=== PATIENT | female | born 1945 | race Caucasian/White ===

== ENCOUNTER → 2017-12-26 | Outpatient (CLI) | payer MEDICARE | END | disposition home or self-care (01) | LOC: ECHO 11:13 | DX: I10 Essential (primary) hypertension (principal); I36.1 Nonrheumatic tricuspid (valve) insufficiency; I51.7 Cardiomegaly | CPT/HCPCS: 93306 ==

== ENCOUNTER → 2018-03-16 | Outpatient (CLI) | payer MEDICARE | END | disposition home or self-care (01) | LOC: MRI 09:16 | DX: S43.431A Superior glenoid labrum lesion of right shoulder, initial encounter (principal); M62.50 Muscle wasting and atrophy, not elsewhere classified, unspecified site; M75.121 Complete rotator cuff tear or rupture of right shoulder, not specified as traumatic; M19.011 Primary osteoarthritis, right shoulder; M25.411 Effusion, right shoulder; M25.711 Osteophyte, right shoulder; X58.XXXA Exposure to other specified factors, initial encounter; Y93.89 Activity, other specified; Y92.89 Other specified places as the place of occurrence of the external cause; Y99.8 Other external cause status | CPT/HCPCS: 73221 ==

== ENCOUNTER → 2019-04-25 | Outpatient (CLI) | payer MEDICARE ==
[2014-12-26 15:08] VITALS: BP 134/74
[~2019-04-25] MED LIST: ARIP2TAB3 PO; ARIP5TAB13 PO; ASCO500C PO; BUPR100T11 PO; BUPR150T11 PO; CHOL500016 PO; CLON0.5T11 PO; DESV50TA PO; FLUT10SP NS; GUAI-108 PO; GUAI100G2 PO; HYDR-3135 PO; KRIL1CAP10 PO; LEVO50TA5 PO; LURA20TA PO; MONT10TA49 PO; OLME1TAB27 PO; OMEP20CA10 PO; PANT40TA77 PO; WARF1TAB74 PO; ZOLP10TA4 PO
--- NOTE | 2019-04-25 12:52 | RAD ---
MRI Lumbar Spine without contrast History: Neurogenic claudication Technique: Multiplanar, multi sequential noncontrast MR imaging was performed of the lumbar spine. Comparison: None Findings: Lumbar vertebral body stature is overall maintained. There is minimal grade 1 anterior spondylolisthesis at L2-3 and to lesser degree at L3-4, negligible anterior spondylolisthesis L5-S1. There is advanced degenerative disc disease at L4-5, to lesser degree L3-4, minimally at other levels of the lumbar spine. There are large hemangiomas of L1 and T11 vertebral bodies. There is a focus of relative decreased T1 and T2 signal of the L2 vertebral body associated subtle increased STIR signal, estimated about 1.2 cm AP by 1.1 cm cc by 0.8 cm transverse. Not included on the axial images, facet degenerative change contributes to at least mild narrowing of the left T10-11 neural foramen. L1-L2: There is negligible disc osteophyte complex. There is minimal facet degenerative change. Neural foramina and spinal canal are overall adequate. L2-L3: There is mild to moderate facet degenerative change and buckling of the ligamentum flavum. There is negligible disc osteophyte complex. There is mild narrowing of the far lateral recesses greater on the left. There is minimal inferior narrowing of the neural foramina greater on the left. L3-L4: There is mild to moderate right and mild left facet degenerative change. There is minimal buckling of the ligamentum flavum. There is negligible disc osteophyte complex. Spinal canal is adequate. There is mild right greater than left neural foramina compromise. L4-L5: There is negligible disc osteophyte complex. There is mild facet degenerative change greater on the right. There is hgfy-lh-vyiekjsc narrowing of the far left lateral recess at location of descending left L5 nerve root, narrowing primarily from posteriorly by the facet. There is very mild narrowing of the far right lateral recess. There is mild neural foramina compromise bilaterally. Shallow protrusion is near the undersurface of the proximal extraforaminal left L4 nerve root without significant displacement. L5-S1: There is moderate facet hypertrophic change bilaterally, some fluid in the facet articulations bilaterally. There is mild buckling of the ligamentum flavum. There is negligible disc osteophyte complex and bulge, spinal canal overall adequate. There is mild narrowing of left neural foramen, disc osteophyte complex near undersurface exiting left L5 nerve root in the distal neural foramen. There is fairly severe narrowing of the right neural foramen, contact exiting right L5 nerve root from posteriorly by facet as well as inferiorly by disc osteophyte complex. Impression: 1. There is advanced degenerative disc disease at L4-5 and to lesser degree L3-4. There is mild abnormal alignment as stated, multilevel facet degenerative change. There is neural foramina compromise as stated greatest on the right L5-S1. There is lateral recess stenosis as stated, [id number] left lateral recess stenosis at L4-5 at location of the descending left L5 nerve root, also mild narrowing of the far lateral recesses greater on the left at L2-3. 2. There is subtle focus of nonspecific marrow signal abnormality of the L2 vertebral body, characteristics suggestive of slightly edematous sclerotic lesion. However it is possible this could be an atypical hemangioma especially in the setting of other large typical appearing hemangiomas. More aggressive marrow replacing lesion such as from metastatic disease would be difficult to exclude based on signal features. Correlation with any history of malignancy is advised. Bone scan evaluation could be beneficial to assess for abnormal radiotracer activity and to assess for other lesions. Alternatively follow-up could be of performed such as in 3-4 months to assess size stability. Electronically signed by: Carlos Bernard MD (04/25/2019 12:49 PM) [id number]
== END | disposition home or self-care (01) ==
LOC: MRI 08:29
PROVIDERS: ATTEND Family Medicine
DX: M43.17 Spondylolisthesis, lumbosacral region (principal); M51.36 Other intervertebral disc degeneration, lumbar region; M48.062 Spinal stenosis, lumbar region with neurogenic claudication; D18.09 Hemangioma of other sites; M25.78 Osteophyte, vertebrae; M51.26 Other intervertebral disc displacement, lumbar region
CPT/HCPCS: 72148

== ENCOUNTER → 2019-05-04 | Outpatient (CLI) | payer MEDICARE ==
[2014-12-26 15:08] VITALS: BP 134/74
--- NOTE | 2019-05-04 14:27 | RAD ---
Whole body bone scan Clinical indications: Low back pain. Breast cancer diagnosed in 1996. Abnormal MRI. COMPARISON: No previous bone scan available. MRI of the lumbar spine dated April 25, 2019. At technique: After IV infusion of 25 mCi of technetium 99m MDP, delayed anterior and posterior planar images of the whole body were performed. FINDINGS: Bilateral renal function is evident. There is diffuse uptake involving the thoracic and lumbar spine. There is uptake involving both knees around photopenic areas consistent bilateral knee arthroplasty postoperative change. Degenerative activity of both feet and ankles and both wrists and both shoulders is seen. There is diffuse activity involving the sternum. This could be secondary to superimposed activity from the thoracic spine. There is activity seen involving the maxillary and ethmoid sinuses bilaterally. IMPRESSION: Diffuse uptake involving the thoracic and lumbar spine. This most likely represents degenerative activity. The MRI images of the lumbar spine MRI study did not demonstrate any significant metastatic disease. The subtle focus of the L2 vertebral body mentioned previously most likely is related to more prominent red marrow. However, given the diffuse uptake of the thoracic and lumbar spine, recommend that the patient return for an MRI study of the thoracic spine with and without contrast and limited MRI lumbar spine study with contrast. The contrast sagittal T1 images should be performed with fat saturation. Bilateral ethmoid and maxillary sinusitis. Electronically signed by: Elpidio Paulino MD (05/04/2019 2:24 PM) [place] [id number]
== END | disposition home or self-care (01) ==
LOC: NM 08:30
PROVIDERS: ATTEND Family Medicine
DX: J32.0 Chronic maxillary sinusitis (principal); J32.2 Chronic ethmoidal sinusitis
CPT/HCPCS: 78306; A9503

== ENCOUNTER → 2019-05-29 | Outpatient (CLI) | payer MEDICARE ==
[2014-12-26 15:08] VITALS: BP 134/74
[~2019-05-29] MED LIST changes: +ALBU2.5V8 INH; +AMLO5TAB10 PO; +FLUT16SP NS; +LACT1CAP8 PO; +VALS1TAB14 PO; +tylenol arthritis
--- NOTE | 2019-05-29 16:28 | PAIN ---
DATE OF SERVICE: 05/29/2019 INITIAL CONSULTATION FOR PAIN CLINIC CHIEF COMPLAINT: Low back and bilateral lower extremity pain, right greater than left. HISTORY OF PRESENT ILLNESS: This is a 73-year-old female who presents with history of pain for many years, worse over the past 6 months or so, increasing pain of low back and right lower extremity, not the result of any specific injury or action that she is aware of, but worse with walking, standing, changing positions and pain across the low back radiating to posterior gluteus, posterolateral thigh, lateral anterior thigh, anterior medial thigh, medial lower leg, worse on the right than the left. The patient reports it is becoming more constant, radiating, cramping and aching, worse with walking, standing, changing positions, better with sitting or lying down, does awaken her from sleep about once or twice at night. The patient reports it does not affect her bowel or bladder control, but does affect her ability to walk. She is not using any canes or walkers to ambulate. The patient reports she had previous physical therapy, also chiropractic treatments, exercises are ongoing as well as chiropractic treatment is ongoing and this helps the pain to a moderate extent, but only about 40% to 50%. The patient also takes extra strength Tylenol 2 tablets in the morning and 2 tablets in the evening and reports this helps by about 50% as well. The patient reports no loss of motor function, but significant fatigability to lower extremities with walking and standing. The patient reports disability rating from 0-10 with 10 being the worst, is a 7 with family home responsibilities, recreation and occupation, 6 with social activity, 5 with self-care and 3 with life support activities. The patient did have MRI scan of the lumbar spine showing at L4-L5 and L5-S1 significant degenerative changes with neural foraminal compromise on the right at L5-S1 and on the bilateral aspect at L4-L5 with contact of the descending extraforaminal left L4 nerve root as well as descending left L5 nerve root at the L4-L5 level with mild narrowing of the far right lateral recess as well. PAST MEDICAL HISTORY: Significant for hypertension, breast cancer, radiation, asthma, chronic cough, sleep apnea, arthritis, gastroesophageal reflux, shoulder arthritis. PREVIOUS SURGERY: Include cataract extraction, total abdominal hysterectomy, bilateral knee replacements and breast lumpectomy. CURRENT MEDICATIONS: Include Singulair, Wellbutrin, Synthroid, Pristiq, valsartan, amlodipine, pantoprazole, zolpidem, multivitamins, Mucinex, Tylenol, ProAir inhaler, and fluticasone. ALLERGIES: THE PATIENT IS ALLERGIC TO PENICILLIN, SULFA, CODEINE, KEFLEX, BACTRIM, AMPICILLIN, DOXYCYCLINE, ERYTHROMYCIN, LEVAQUIN, AND CLINDAMYCIN. FAMILY HISTORY: Significant for no major medical problems or conditions that she is aware of, but the patient reports her sister does have a laryngeal cancer. SOCIAL HISTORY: The patient does not drink alcohol, does not smoke, does not use any illegal, illicit or recreational drugs. She is , lives with her spouse, lives locally in [place], [place] and is currently retired. REVIEW OF SYSTEMS: The patient's review of systems is positive for those items mentioned in history of present illness. All systems reviewed and otherwise negative. It is complete, full and well documented on the patient's chart. PHYSICAL EXAMINATION: VITAL SIGNS: The patient's blood pressure is 138/82, pulse 81, respirations 18, temperature is 98.1 degrees Fahrenheit, height is 5 feet 5 inches, weight is 200 pounds. GENERAL: The patient is awake, alert, oriented, appropriate, very pleasant demeanor. HEENT: Head shows normocephalic, atraumatic. Extraocular movements are intact and symmetrical. Oral cavity, mucous membranes are moist and pink. Dentition is intact. NECK: Shows anterior throat supple without palpable lymphadenopathy noted. Swallow reflex symmetrical. CHEST: Shows normal on inspection. Breath sounds clear to auscultation bilaterally. HEART: Shows S1, S2 clear. No murmurs auscultated. ABDOMEN: Soft, nontender, and nondistended. No palpable organomegaly is noted. No rebound or guarding demonstrated. BACK: Shows spine grossly in the midline. Slight exaggeration of thoracic kyphosis and minor flattening of lumbar lordotic curvature. Lumbar paraspinous muscle shows symmetrical on inspection, on palpation shows some moderate tenderness diffusely bilaterally in the lumbar distribution, but only diffusely without radiation throughout the upper, middle and lower distribution of paraspinous muscles. No tenderness over the spinous processes or sacrum or sacroiliac regions. The patient shows good rotational motion of lumbar spine, both laterally greater than 10 degrees right and left as well as extension greater than 10 degrees, forward flexion 45 degrees without significant pain reported. EXTREMITIES: Lower extremities show deep tendon reflexes at 1+ in the patellar and tendo calcaneus tendons are equal. Motor exam is strong with 5/5 dorsiflexion, extension, quadriceps and hamstring flexion symmetrical. Straight leg raise noted to be positive on the right about 45 degrees, decreased with knee flexion, left side is negative. Gaenslen's and Ke's maneuvers are negative bilaterally. Peripheral pulses are 1+ posterior tibia. Lower extremities are warm and dry to touch, equal in color and appearance. The patient is able to stand, stand on her toes without significant difficulty, but walks with a slight favoring gait, favors right lower extremity with a slight limp, not using any assistive devices to ambulate. SKIN: Shows warm and dry, good turgor. No edema. No sores or bruising. IMPRESSION: 1. This is a 73-year-old female with many-year history of low back, right lower, left lower extremity pain in a radicular fashion, worse over the past 6 months or so, status post floor care specialist, previous therapies and doing exercise currently with still a significant pain and with [id number] extra strength Tylenol twice daily. 2. MRI scan of lumbar spine as noted. 3. Hypertension. 4. Arthritis. 5. History of breast cancer. PLAN: Options were discussed with the patient including conservative medical management, physical therapies, interventional techniques. She would like to pursue interventional techniques. We discussed a lumbar epidural steroid injection using description as well as anatomical models to describe the procedure. The patient will wait for preauthorization with her insurance provider, which she does have a clinical radiculopathy in the L4-L5 dermatomal distribution, worse on the right than the left, but present bilaterally. We will plan on a translaminar L4-L5 level lumbar epidural steroid injection on her return once her preauthorization is made. The patient will continue with exercising, strengthening and stretching as normal as well as walking as tolerated daily and the patient will follow up as scheduled. RENEE ABEL MD DR: LEANNA/yari JOB#: [id number] / [id number]
== END | disposition home or self-care (01) ==
LOC: PNCL 09:08
PROVIDERS: ATTEND Anesthesiology
DX: M54.5 Low back pain (principal); M79.605 Pain in left leg; M79.604 Pain in right leg; I10 Essential (primary) hypertension; J45.909 Unspecified asthma, uncomplicated; G47.30 Sleep apnea, unspecified; K21.9 Gastro-esophageal reflux disease without esophagitis; M19.019 Primary osteoarthritis, unspecified shoulder; Z98.49 Cataract extraction status, unspecified eye; Z90.710 Acquired absence of both cervix and uterus; Z96.653 Presence of artificial knee joint, bilateral; Z79.84 Long term (current) use of oral hypoglycemic drugs; Z79.2 Long term (current) use of antibiotics; Z79.899 Other long term (current) drug therapy; Z88.2 Allergy status to sulfonamides; Z88.5 Allergy status to narcotic agent; Z88.1 Allergy status to other antibiotic agents; Z88.8 Allergy status to other drugs, medicaments and biological substances; Z85.3 Personal history of malignant neoplasm of breast; Z92.3 Personal history of irradiation
CPT/HCPCS: G0463

== ENCOUNTER → 2019-06-20 | Outpatient (CLI) | payer MEDICARE ==
[2014-12-26 15:08] VITALS: BP 134/74
[~2019-06-20] MED LIST changes: +CLON-77 PO; -CLON0.5T11 PO; +IOHEXOL 180 MG/ML 10 ML VIAL. ONE; +methylPREDNISolone ACETATE 40 MG/ML VIAL. ONE; +methylPREDNISolone ACETATE 80 MG/ML VIAL. ONE
--- NOTE | 2019-06-21 02:56 | PN ---
DATE: 06/20/2019 PROGRESS NOTE FOR PAIN CLINIC DIAGNOSES: Lumbar radiculopathy with lumbar degenerative disk disease and lumbar spinal stenosis. HISTORY OF PRESENT ILLNESS: The patient is a 74-year-old female who returns for followup status post initial evaluation and preauthorization for lumbar epidural steroid injection. The patient has obtained that now and would like to proceed, still pain in the low back, bilateral lower extremities, right greater than left. The patient reports her pain in the last week has been 8 on a scale of 10 at its worst, 7 on average, 6 at its least, and is a 6 today. The patient reports it is aching, sharp, radiating, constant, becoming severe at times, worse with walking and standing, better with sitting or lying down, does not awaken her from sleep. The patient reports no new motor or sensory deficits. No new bowel or bladder incontinence or other complaints. PHYSICAL EXAMINATION: VITAL SIGNS: The patient's blood pressure is 147/79, pulse 76, respirations 16, temperature is 97.7 degrees Fahrenheit, and weight is 201 pounds. GENERAL: The patient is awake, alert, oriented, appropriate, and very pleasant demeanor. HEENT: Shows normocephalic and atraumatic. Extraocular movements are intact and symmetrical. Oral cavity: Mucous membranes are moist and pink. Dentition is intact. NECK: Shows anterior throat supple without palpable lymphadenopathy noted. Swallow reflex symmetrical. CHEST: Shows normal on inspection. Breath sounds are clear to auscultation bilaterally. HEART: Shows S1, S2 clear. No murmurs auscultated. ABDOMEN: Soft, nontender, and nondistended. No palpable organomegaly is noted. No rebound or guarding demonstrated. BACK: Shows spine grossly in the midline. Normal appearing thoracic kyphosis and lumbar lordotic curvature. Lumbar paraspinous muscle shows symmetrical on inspection, on palpation shows some moderate tenderness diffusely in the low lumbar distribution, but only diffusely without radiation. The patient has good rotational motion of lumbar spine, both laterally as well as extension and flexion without significant difficulty. EXTREMITIES: Lower extremities show deep tendon reflexes 1+ in the patellar and tendo calcaneus tendons. Motor exam is strong with 5/5 dorsiflexion, extension, quadriceps and hamstring flexion and symmetrical. Peripheral pulses are 1+. No peripheral edema is noted bilaterally. Options were discussed with the patient. The patient's old chart was reviewed as her current medication regimen updated and current review of systems updated today as well. We will proceed with a lumbar epidural steroid injection today with fluoroscopic guidance. Risks were again discussed including, but not limited to bleeding, infection, possibility of epidural hematoma, subsequent neurological compromise, dural puncture, headaches, spinal cord and/or nerve damage, side effects of steroid medication and poor results regarding pain control. The patient understands and wished to proceed. The patient will return to clinic in approximately 2 weeks for followup. She was counseled on return appointment, activity level, and side effects to be aware of. DIAGNOSIS: Lumbar radiculopathy with lumbar degenerative disk disease and lumbar spinal stenosis. PROCEDURE: Lumbar epidural steroid injection, translaminar approach at L4-L5 level using C-arm fluoroscopic guidance under sterile prep and drape using local anesthetic. MEDICATION INJECTED: The patient received a total of 120 mg Depo-Medrol plus 10 mL of preservative-free normal saline and 2 mL of contrast. CONDITION AT DISCHARGE: Stable. The patient tolerated the procedure well, had no complications. RENEE ABEL MD DR: LEANNA/yari JOB#: [id number] / [id number]
== END ==
LOC: PNCL 10:34
PROVIDERS: ATTEND Anesthesiology
DX: M51.16 Intervertebral disc disorders with radiculopathy, lumbar region (principal); M48.061 Spinal stenosis, lumbar region without neurogenic claudication
CPT/HCPCS: 62323; J1030; J1040; Q9965

== ENCOUNTER → 2019-10-04 | Outpatient (CLI) | payer MEDICARE ==
[2014-12-26 15:08] VITALS: BP 134/74
[~2019-10-04] MED LIST changes: -IOHEXOL 180 MG/ML 10 ML VIAL. ONE; +OMEP-229 PO; -OMEP20CA10 PO; -methylPREDNISolone ACETATE 40 MG/ML VIAL. ONE; -methylPREDNISolone ACETATE 80 MG/ML VIAL. ONE
--- NOTE | 2019-10-04 22:35 | PAIN ---
DATE OF SERVICE: 10/04/2019 DIAGNOSES: Lumbar radiculopathy with lumbar degenerative disk disease, lumbar spinal stenosis. HISTORY OF PRESENT ILLNESS: The patient is a 74-year-old female who returns for followup status post lumbar epidural steroid injection x 1, last seen 06/20/2019, patient did very well with about 80% improvement in the low back and right lower extremity pain. The patient reports that she was walking greater distances, doing work activities, household activities, travelling with greater ease and comfort. Unfortunately, her sister fell ill in [facility] and she had 2 car trips there within a week's time with excessive time [address] sitting in the car, which has exacerbated the pain in the low back and right leg, now radiating to posterior gluteus, lateral thigh, lateral anterior thigh, medial thigh, medial lower leg and into the posterior calf. The patient reports it is an 8 on a scale of 10 at its worst over the past week, 7 on average, 7 at its least and is a 7 today, aching, sharp, stabbing, becoming more constant, radiating into the low back and right lower extremity as it was previously following L4-L5 dermatomal distribution on the right only. No symptoms on the left side, but across the low back bilaterally. The patient reports it is stabbing and sharp in the back, becoming more constant. The patient reports no new motor or sensory deficits. No new bowel or bladder incontinence. No other complaints. PHYSICAL EXAMINATION: VITAL SIGNS: The patient's blood pressure is 145/85, pulse 80, respirations 18, temperature 97.5 degrees Fahrenheit, height is 5 feet 5 inches, weighs 197 pounds. GENERAL: The patient is awake, alert, oriented, appropriate, very pleasant demeanor. HEENT: Shows normocephalic, atraumatic. Extraocular movements are intact and symmetrical. Oral cavity shows mucous membranes moist and pink. Dentition is intact. NECK: Shows anterior throat supple without palpable lymphadenopathy noted. Swallow reflex symmetrical. CHEST: Shows normal on inspection. Breath sounds clear bilaterally. HEART: Shows S1, S2 clear. Obese, soft, nontender, nondistended. No palpable organomegaly is noted. No rebound or guarding demonstrated. BACK: Shows spine grossly in the midline. Normal appearing thoracic kyphosis, minor flattening of lumbar lordotic curvature. Lumbar paraspinous muscle shows symmetrical on inspection with some mild palpation throughout the upper, middle and lower distribution of paraspinous musculature, only mildly though without radiation and without trigger points. The patient has good rotational motion of lumbar spine, both laterally as well as extension and flexion without difficulty. EXTREMITIES: Lower extremities show deep tendon reflexes 1+ patellar and tendo calcaneus tendons. Motor exam is approximately 5 on a scale of 5 dorsiflexion, extension, quadriceps and hamstring flexion is symmetrical. Straight leg raising noted to be mildly positive on the right only at about 35-40 degrees, decreased with knee flexion, left side is negative. Gaenslen's and Ke's maneuvers are negative bilaterally. The patient is able to stand, stand on her toes without significant difficulty or loss of balance. Options were discussed with the patient. The patient's old chart was reviewed as her current medication regimen updated. Current review of systems updated today as well. We will preauthorize the patient for a second in the series of lumbar epidural steroid injection. She did very well after the first injection for several weeks following the injection and only pain returning over the past 3 weeks now. The injection was in June after excessive time spent on a car trip with a recurrent right sided L4-L5 dermatomal distribution radiculopathy. We will plan on lumbar epidural steroid injection at L4-L5 level, translaminar approach for the L4-L5 radiculopathy on the right side. The patient will continue doing stretching and strengthening exercises on her own, maintain walking daily as she has been doing stretching and strengthening exercises as tolerated and return for the lumbar epidural steroid injection. RENEE ABEL MD DR: LEANNA/yari JOB#: [id number] / [id number]
== END | disposition home or self-care (01) ==
LOC: PNCL 13:49
PROVIDERS: ATTEND Anesthesiology
DX: M51.16 Intervertebral disc disorders with radiculopathy, lumbar region (principal); M48.061 Spinal stenosis, lumbar region without neurogenic claudication
CPT/HCPCS: G0463

== ENCOUNTER → 2019-10-16 | Outpatient (CLI) | payer MEDICARE ==
[2014-12-26 15:08] VITALS: BP 134/74
[~2019-10-16] MED LIST changes: +IOHEXOL 180 MG/ML 10 ML VIAL. ONE; +methylPREDNISolone ACETATE 40 MG/ML VIAL. ONE; +methylPREDNISolone ACETATE 80 MG/ML VIAL. ONE
--- NOTE | 2019-10-16 13:17 | PAIN ---
DATE OF SERVICE: 10/16/2019 PROGRESS NOTE FOR PAIN CLINIC DIAGNOSES: Lumbar radiculopathy with lumbar degenerative disk disease, lumbar spinal stenosis. HISTORY OF PRESENT ILLNESS: The patient is a 74-year-old female who returns for followup status post lumbar epidural steroid injection x 1. The patient reports she did very well with about 80% improvement, the pain is returning now in the low back and into the right lower extremity as it was previously, posterior gluteus, posterolateral thigh, lateral anterior thigh, medial thigh, medial lower leg as well. The patient reports no new motor or sensory deficits, no new bowel or bladder incontinence, still significant pain with the walking, standing, changing positions, better with sitting or lying down, generally does not awaken her from sleep at night, however. The patient reports no new motor or sensory deficits, rates her pain as 8 on a scale of 10 at its worst, 8 on average, 8 at its least and is an 8 today. The patient reports it is cramping, stabbing, aching type, and shooting in the right lower extremity, somewhat in the left, but only very occasionally and across the low back. The patient reports it is on and off in intensity. No new motor or sensory deficits, no new bowel or bladder incontinence or other complaints. PHYSICAL EXAMINATION: VITAL SIGNS: The patient's blood pressure 149/86, pulse 77, respirations 18, temperature 97.5 degrees Fahrenheit, height is 5 feet 5 inches, weight is 194 pounds. GENERAL: The patient is awake, alert, oriented, appropriate, very pleasant demeanor. HEENT: Shows normocephalic, atraumatic. Extraocular movements are intact and symmetrical. Oral cavity shows mucous membranes moist and pink. Dentition is intact. NECK: Shows anterior throat supple without palpable lymphadenopathy noted. Swallow reflex symmetrical. CHEST: Shows normal on inspection. Breath sounds are clear bilaterally. HEART: Shows S1, S2 clear. No murmurs auscultated. ABDOMEN: Soft, nontender, nondistended. BACK: Shows spine grossly in the midline. Normal-appearing thoracic kyphosis, some minor increase in thoracic kyphosis actually and some minor flattening of lumbar lordotic curvature. Lumbar paraspinous muscle shows symmetrical on inspection, on palpation shows some moderate tenderness diffusely bilaterally, but only diffusely without significant radiation. The patient shows good rotational motion of lumbar spine, both laterally as well as extension and flexion. EXTREMITIES: Lower extremities show deep tendon reflexes 1+ in the patellar and tendo calcaneus tendons are equal. Motor exam is 5 on a scale of 5 with dorsiflexion, extension, quadriceps and hamstring flexion symmetrical. Peripheral pulses are 1+ posterior tibia. No peripheral edema is noted. Options were discussed with the patient. The patient's old chart was reviewed as her current medication regimen updated. Current review of systems updated today as well. We will proceed with a second in the series of lumbar epidural steroid injection today with fluoroscopic guidance. Risks were again discussed including, but not limited to bleeding, infection, possibility of epidural hematoma, subsequent neurological compromise, dural puncture, headaches, spinal cord and/or nerve damage, side effects of steroid medication and poor results regarding pain control. The patient understands and wished to proceed. The patient will return to the clinic in approximately 2 weeks for followup. She was counseled as to return appointment, activity level and side effects to be aware of. DIAGNOSES: Lumbar radiculopathy with lumbar degenerative disk disease, lumbar spinal stenosis. PROCEDURE: Lumbar epidural steroid injection, translaminar approach L4-L5 level using C-arm fluoroscopic guidance under sterile prep and drape using local anesthetic. MEDICATION INJECTED: A total of 120 mg Depo-Medrol plus 10 mL of preservative-free normal saline and 2 mL of contrast. CONDITION AT DISCHARGE: Stable. The patient tolerated the procedure well, had no complications. RENEE ABEL MD DR: LEANNA/yari JOB#: [id number] / [id number]
== END ==
LOC: PNCL 07:41
PROVIDERS: ATTEND Anesthesiology
DX: M51.16 Intervertebral disc disorders with radiculopathy, lumbar region (principal); M48.061 Spinal stenosis, lumbar region without neurogenic claudication
CPT/HCPCS: 62323; J1030; J1040; Q9965

== ENCOUNTER → 2019-10-30 | Outpatient (CLI) | payer MEDICARE ==
[2014-12-26 15:08] VITALS: BP 134/74
[~2019-10-30] MED LIST changes: -IOHEXOL 180 MG/ML 10 ML VIAL. ONE; -OMEP-229 PO; +OMEP20CA16 PO; -methylPREDNISolone ACETATE 40 MG/ML VIAL. ONE; -methylPREDNISolone ACETATE 80 MG/ML VIAL. ONE
--- NOTE | 2019-10-30 13:00 | PAIN ---
DATE OF SERVICE: 10/30/2019 PROGRESS NOTE FOR PAIN CLINIC DIAGNOSES: Lumbar radiculopathy with lumbar degenerative disk disease and lumbar spinal stenosis. HISTORY OF PRESENT ILLNESS: This is a 74-year-old female, who returns for followup status post lumbar epidural steroid injection x2. The patient reports no significant improvement after the second injection. The patient reports the first injection did very well with about 80% improvement; that was in June of last year. The patient reports second injection was not significantly improving the pain still in the low back, bilateral lower extremities, right greater than left; worse with walking, standing, and changing positions. The patient reports it has been disturbing her sleep at night about every 6-7 hours; describes it as aching and sharp in the low back, shooting, stabbing; becoming more constant; worse with walking, standing, changing positions, better with sitting or lying down, but again awakens her from sleep frequently. The patient reports it is 9 on a scale of 10 at its worst over the past week, 9 on average, 8 at its least, and is 9 today. The patient reports no new motor or sensory deficits, however. No new bowel or bladder incontinence or other complaints. PHYSICAL EXAMINATION: VITAL SIGNS: The patient's blood pressure is 150/87, pulse 75, respirations 18, temperature 98.1 degree Fahrenheit, height is 5 feet 5 inches, and weight is 199 pounds. GENERAL: The patient is awake, alert, oriented, appropriate; very pleasant demeanor. HEENT: Shows normocephalic, atraumatic. Extraocular movements are intact and symmetrical. Oral cavity shows mucous membranes are moist and pink. Dentition is intact. NECK: Shows anterior throat supple without palpable lymphadenopathy noted. Swallow reflex is symmetrical. CHEST: Shows normal on inspection. Breath sounds are clear to auscultation bilaterally. HEART: Shows S1 and S2, clear. ABDOMEN: Soft, nontender, nondistended. BACK: Shows spine is grossly in the midline. Lumbar paraspinous muscle shows symmetrical on inspection. On palpation, there is some moderate tenderness diffusely throughout the upper, middle, and lower distribution of the paraspinous muscles but only diffusely without significant radiation. The patient has good rotational motion of lumbar spine, both laterally as well as extension and flexion, without significant difficulty. EXTREMITIES: The patient's lower extremities show deep tendon reflexes 1+ in patella and tendo calcaneus tendons. Motor exam is strong with 5/5 dorsiflexion, extension, and symmetrical. Peripheral pulses are 1+ in the posterior tibia. No peripheral edema is noted. ASSESSMENT AND PLAN: Options were discussed with the patient. The patient's old chart was reviewed as well as her current medication regimen updated. Current review of systems is updated today as well. We will hold on any further injections at this time as the patient would like to try physical therapy. We discussed this. We will make these arrangements and physical therapy will be ordered today. The patient will follow up after therapy is completed and potentially for additional epidural steroid injection at that time, but she would like to try something different as the last injection was not significantly improving the pain. We will have the patient follow up after therapy as scheduled. RENEE ABEL MD DR: LEANNA/yari JOB#: [id number] / [id number]
== END | disposition home or self-care (01) ==
LOC: PNCL 09:44
PROVIDERS: ATTEND Anesthesiology
DX: M51.16 Intervertebral disc disorders with radiculopathy, lumbar region (principal); M48.061 Spinal stenosis, lumbar region without neurogenic claudication
CPT/HCPCS: G0463

== ENCOUNTER 2021-02-20 12:33 | Emergency (ER) | payer MEDICARE ==
[~2021-02-20] VITALS: Ht 165.1 cm; Wt 84.0 kg
[2021-02-20 12:33] VITALS: BP 192/91
[~2021-02-20 12:33] MED LIST changes: +AMLO-186 PO; -AMLO5TAB10 PO; +WARF1TAB2 PO; -WARF1TAB74 PO
[2021-02-20] MEDS ORDERED: LIDOCAINE 1% Multi-Dose 20 ML VIAL. ID ONE (12:45)
--- NOTE | 2021-02-20 12:48 | PHYS DOC ---
Past Medical History Additional Past Medical Histor: CATARACTS. Past Surgical History Bilateral knee replacement surgeries, Smoking Status: Never Smoker Alcohol Use: None Drug Use: None General Adult EDM: Chief Complaint: LACERATION/AVULSION HPI: HPI: This is a pleasant 75-year-old female who presents emergency department today after she was getting out of her car at a [employer] locally where she fell and hit her head. She sustained a 11 cm laceration to the forehead into the scalp. She denies loss of consciousness. She denies numbness weakness or tingling of her arms or legs. She is not on a blood thinner. She denies any other injuries other than some mild right shoulder pain. Review of systems negative for chest pain abdominal pain vomiting diaphoresis fevers chills. She denies numbness weakness facial drooping. All other review of systems negative Heart Score: C/O Chest Pain: No Risk Factors: Risk Factors: DM, Current or recent (<one month) smoker, HTN, HLP, family history of CAD, obesity. Risk Scores: Score 0 - 3: 2.5% MACE over next 6 weeks - Discharge Home Score 4 - 6: 20.3% MACE over next 6 weeks - Admit for Clinical Observation Score 7 - 10: 72.7% MACE over next 6 weeks - Early Invasive Strategies Current Medications: Current Medications Medications (Trade) Dose Ordered Sig/Karan Start Time Stop Time Status Last Admin Dose Admin Lidocaine HCl (Lidocaine 1% 20ml Vial) 10 ml 1X ONCE 02/20/21 12:45 02/20/21 12:46 DC Allergies: Allergies: Allergies Coded Allergies Type Severity Reaction Last Updated Verified Penicillins Allergy Intermediate RASH ITCH 11/01/14 Yes Sulfa (Sulfonamide Antibiotics) Allergy Intermediate Itching, rash, swelling 11/01/14 Yes azithromycin Allergy Intermediate ITCHING 11/01/14 Yes cephalexin Allergy Intermediate rash 11/01/14 Yes clarithromycin Allergy Intermediate ITCHING 11/01/14 Yes codeine Allergy Intermediate itching 11/01/14 Yes doxycycline Allergy Intermediate swelling , itching 11/01/14 Yes naproxen Allergy Intermediate [id number] 12/23/14 Yes naproxen sodium Allergy Mild CHEST DISCOMFORT 11/01/14 Yes Estrogens Adverse Reaction Severe AVOIDS DUE TO ESTROGEN POSITIVE BREAST CANCER 11/01/14 Yes Physical Exam: PE: General Appearance alert, cooperative, no distress, responsive Head Normocephalic, with a an 11 cm laceration of the scalp and forehead. No foreign bodies present however given the significant amount of bleeding we had to suture and staple it rather relatively quickly to obtain control of the patient's bleeding from the scalp. Eyes conjunctivae/corneas clear. PERRL, EOM's intact. Ears normal TM's and external ear canals AU Nose Nares normal. Septum midline. Mucosa normal. No drainage or sinus tenderness. Throat no blood or lacerations, normal alignment Neck supple, symmetrical, trachea midline Back/Spine symmetric, normal curvature. ROM normal, no abrasions, no tenderness to palpation, no step-offs Lungs clear to auscultation bilaterally Chest Wall normal ribcage without tenderness to palpation, crepitus or emphysema Heart reg rate and regular rhythm, S1, S2 normal, no murmur, click, rub or gallop Abdomen soft, non-tender. Bowel sounds normal. No masses, no organomegaly Pelvic stable Extremities The patient's right shoulder is mildly tender to palpation with mild pain with passive range of motion of the shoulder joint. Nontender clavicle. No abrasions lacerations or ecchymosis overlying the skin. No bruising. Normal range of motion of the shoulder joint. Nontender elbow and wrist distally. Neurovascular intact with 2-second cap refill and palpable pulse.\ The left upper extremity, and both extremities bilaterally lower abnormal range of motion of the joints without any pain with passive range of motion. Neurovascularly intact with palpable pulse and 2-second cap refill. Normal motor and sensory function of the extremities. Pulses 2+ and symmetric Skin Skin color, texture, turgor normal. No rashes or lesions Neurologic Grossly normal Eye opening: (4) spontaneous Best motor response: (6) obeys verbal command Best verbal response: (5) oriented and converses Total Geoff (E + M + V) = 15 EKG: EKG: [] Radiology/Procedures: Radiology/Procedures: [] Course & Med Decision Making: Course & Med Decision Making Pertinent Labs and Imaging studies reviewed. (See chart for details) [] 75-year-old female with a significant laceration to her forehead after falling from a mechanical fall while getting out of the car [employer]. Her laceration was repaired in the emergency department. CT head neck and maxillofacial CT showed no acute intracranial traumatic injuries. No acute fracture or dislocation of the cervical spine. No sinus fractures. The remainder of her secondary survey unremarkable. Shoulder x-ray is unremarkable. Blood work unremarkable. Other than a mild minimal hyponatremia. Will discharge patient to follow-up with PCP in 1 to 2 days Guerrero Disclaimer: Guerrero Disclaimer: This electronic medical record was generated, in whole or in part, using a voice recognition dictation system. Departure Departure Impression: Primary Impression: Forehead laceration Additional Impression: Blunt head trauma Disposition: HOME / SELF CARE / HOMELESS Condition: STABLE Referrals: WATSON SUÁREZ MD (PCP) Patient Instructions: Facial Laceration, Head Injury, Adult Additional Instructions: EMERGENCY DEPARTMENT GENERAL DISCHARGE INSTRUCTIONS Follow-up with your primary physician in 1 to 2 days. Return to the emergency department if you have any new or concerning findings. Thank you for coming to [facility] Emergency Department (ED) today and trusting us with you care. We trust that you had a positive experience in our Emergency Department. If you wish to speak to the department management, you may call the Director at [phone]. Follow up is important in emergency/acute care visits. This condition should be evaluated by your primary care physician and any necessary consulting services for continued management within a few days (1-2) after discharge. Return to the emergency department if you have any new or concerning symptoms including but not limited to fever, chills, nausea, vomiting, intractable pain, any new rashes, chest pain, shortness of breath, uncontrolled bleeding, difficulty breathing, and/or vision loss. 1. Do you have a private Doctor? If you do not have a private doctor, please ask for a resource list of physicians or clinics that may be able to assist you with follow up care. 2. If a lab test or culture has been done and does not come back immediately, your results will be reviewed and you will be notified if you need a change in treatment. 3. Your care today has been supervised by a physician who is specially trained in emergency care. Many problems require more than one evaluation for a complete diagnosis and treatment. We recommend that you schedule your follow up appointment as recommended to ensure complete treatment of you illness or injury. If you are unable to obtain follow up care and continue to have a problem, or if your condition worsens, we recommend that you return to the ED. 4. We are not able to safely determine your condition over the phone nor are we able to give sound medical advice over the phone. For these safety reasons, if you call for medical advice we will ask you to come to the ED for further evaluation. IF YOUR SYMPTOMS WORSEN OR NEW SYMPTOMS DEVELOP, OR YOU HAVE CONCERNS ABOUT YOUR CONDITION; OR IF YOUR CONDITION WORSENS WHILE YOU ARE WAITING FOR YOUR FOLLOW UP APPOINTMENT; EITHER CONTACT YOUR PRIMARY CARE DOCTOR, THE PHYSICIAN WHOSE NAME AND NUMBER YOU WERE Jovan ELIZABETH, OR RETURN TO THE ED IMMEDIATELY. Laceration Repair Lac Repair Indication: SCALP LACERATOIN Procedure: The patient was placed in the appropriate position and anesthesia around the LEFT SCALP WITH 1% LIDO WITHOUT EPINEPHRINE. The area was then CLEANSED OUT. The laceration was closed using a simple interrupted technique and ariana. 9 ariana above the hairline used. 11 nonabsorbable sutures utilized. The wound area was then left open. Total repaired wound length: 11cm. Other Items: none The patient tolerated the procedure well. Complications: none. GLENIS GLASGOW MD February 20, 2021 12:48
[2021-02-20 13:01] LABS: BASO % 1 % (0-3); EOS % 1 % (0-3); HEMATOCRIT 37.5 % (36.0-47.0); HEMOGLOBIN 12.9 g/dL (12.0-15.5); LYMPH # 1.5 x10^3/uL (1.0-4.8); LYMPH % 26 % (24-48); MEAN CORPUSCULAR HEMOGLOBIN 30 pg (25-35); MEAN CORPUSCULAR HGB CONC 34 g/dL (31-37); MEAN CORPUSCULAR VOLUME 86 fL (79-100); MONO # 0.5 x10^3/uL (0.0-1.1); MONO % 9 % (0-9); NEUT # 3.7 x10^3/uL (1.8-7.7); NEUT % 64 % (31-73); PLATELET COUNT 196 x10^3/uL (140-400); RED BLOOD COUNT 4.36 x10^6/uL (3.50-5.40); RED CELL DISTRIBUTION WIDTH 13.8 % (11.5-14.5); WHITE BLOOD COUNT 5.8 x10^3/uL (4.0-11.0)
[2021-02-20 13:12] LABS: CALCIUM 9.5 mg/dL (8.5-10.1); CREATININE 0.7 mg/dL (0.6-1.0); GFR 81.1; POTASSIUM 3.8 mmol/L (3.5-5.1)
[2021-02-20 13:17] LABS: ALBUMIN 4.4 g/dL (3.4-5.0); ALBUMIN/GLOBULIN RATIO 1.5 (1.0-1.7); TOTAL BILIRUBIN 0.3 mg/dL (0.2-1.0); TOTAL PROTEIN 7.3 g/dL (6.4-8.2)
--- NOTE | 2021-02-20 13:56 | RAD ---
EXAMINATION: CT MAXILLOFACIAL WITHOUT CONTRAST, CT HEAD AND C-SPINE WO CLINICAL HISTORY: Head injury TECHNIQUE: Serial axial images without IV contrast were obtained from the vertex to the foramen magnum. Spiral high resolution axial unenhanced images were obtained through the facial bones with sagittal a nd coronal planar reconstructions. CT of the cervical spine without IV contrast. Spiral, high resolution axial images were obtained from the skull base to the cervicothoracic junction with sagittal and coronal planar reconstructions. CT Dose Reduction Employed: One or more of the following individualized dose reduction techniques wer e utilized for this examination: 1. Automated exposure control 2. Adjustment of the mA and/or kV ac cording to patient size 3. Use of iterative reconstruction technique. COMPARISON: None FINDINGS: BRAIN: Acute Change: Small to moderate subcutaneous hematoma along the left frontal scalp with heterogeneous attenuation and several locules of subcutaneous emphysema. Overlying skin closure ariana. No eviden ce of an acute contusion or other acute parenchymal process. Hemorrhage: No evidence of acute intracranial hemorrhage. Mass Lesion/Mass Effect: No evidence of intracranial mass or extraaxial fluid collection. No signific ant mass effect. Chronic Change: Patchy hypoattenuation in the supratentorial white matter, asymmetrically prominent i n the frontal lobes and nonspecific but favors mild to moderate microvascular ischemia. Atherosclerot ic calcification of the bilateral carotid siphons. Parenchyma: Mild generalized volume loss. Ventricles: Ventricles within normal limits for age. Skull Base: No evidence of acute calvarial fracture. MAXILLOFACIAL: Soft Tissues: No significant superficial soft tissue swelling. Facial Bones: No evidence of acute facial bone fracture. Orbits: No evidence of acute orbital fracture. Globes are intact. Soft tissue planes of the orbits ma intained. Paranasal Sinuses: Small mucous retention cyst versus polyp in the right maxillary sinus. C-SPINE: Alignment: Straightening of the normal cervical lordosis, possibly positional. Mild right lateral lis thesis of C5 on C6. Osseous Structures: No evidence of acute fracture. Degenerative Changes: Moderate to marked multilevel degenerative disc disease, facet arthropathy, and neural foraminal narrowing greatest at C5-6. Mild to moderate narrowing of the osseous spinal canal in the mid to lower cervical spine, asymmetric to the right. Cervical Soft Tissues: No prevertebral soft tissue swelling. IMPRESSION: BRAIN: Small to moderate subcutaneous hematoma along the left frontal scalp. No evidence of acute intracrani al abnormality. MAXILLOFACIAL: No evidence of acute facial bone fracture. C-SPINE: No evidence of acute osseous abnormality involving the cervical spine. Moderate to marked multilevel degenerative disc disease, facet arthropathy, neural foraminal narrowin g as described. [id number] osseous spinal canal narrowing in the mid to lower cervical spine. Electronically signed by: Abdelrahman Jang DO (02/20/2021 1:53 PM) [facility]
[2021-02-20] MEDS ORDERED: DIPH,PERTUSS(ACELL),TET VAC/PF 0.5 ML SYRINGE. VAX IM ONE (14:15)
--- NOTE | 2021-02-20 14:15 | RAD ---
Site ID: [id number] EXAMINATION: XR SHOULDER_LEFT 2+ VIEWS. HISTORY: 75 years Female Reason: left shoulder pain after fall / Spl. Instructions: / History: . COMPARISON: None. FINDINGS: No fracture, dislocation or radiopaque foreign body. There is degenerative subchondral sclerosis w ith minimal osteophyte formation at the acromioclavicular joint. The glenohumeral joint demonstrates no significant arthritic change. That there are surgical clips are noted along the lateral aspect of the left breast. IMPRESSION: No acute process. Electronically signed by: Francis Aparicio MD (02/20/2021 2:13 PM) [id number]
--- NOTE | 2021-02-20 14:38 | EKG ---
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
[2021-02-20 15:02] LABS: BILIRUBIN,URINE NEGATIVE (NEG); CLARITY,URINE CLEAR; COLOR,URINE YELLOW; NITRITE,URINE NEGATIVE (NEG); PROTEIN,URINE NEGATIVE (NEG-TRACE); UROBILINOGEN,URINE 0.2 mg/dL (0.2 mg/dL)
[2021-02-20 15:13] LABS: AMORPHOUS SEDIMENT,UR PRESENT /HPF; BACTERIA,URINE FEW /HPF (0-FEW); RBC,URINE 0 /HPF (0-2); WBC,URINE 0 /HPF (0-4)
== END 2021-02-20 15:35 | disposition home or self-care (01) ==
LOC: ER 12:33
DX: S01.01XA Laceration without foreign body of scalp, initial encounter (principal); M25.511 Pain in right shoulder; Z88.0 Allergy status to penicillin; Z88.2 Allergy status to sulfonamides; Z88.1 Allergy status to other antibiotic agents; Z88.8 Allergy status to other drugs, medicaments and biological substances; W18.39XA Other fall on same level, initial encounter; Y93.89 Activity, other specified; Y92.89 Other specified places as the place of occurrence of the external cause; Y99.8 Other external cause status
CPT/HCPCS: 12004; 36415; 70450; 70486; 72125; 73030; 80053; 81001; 84484; 85025; 90471; 90715; 93005; 99285; J3490

== ENCOUNTER → 2021-03-19 | Outpatient (CLI) | payer MEDICARE ==
[2021-02-20 12:33] VITALS: BP 192/91
--- NOTE | 2021-03-19 11:17 | RAD ---
CT Head without contrast 03/19/2021 10:12 AM Indication: Reason: TRAUMATIC INJURY OF HEAD FALL VERTIGO / Spl. Instructions: / History: Comparison: CT head February 20, 2021 Findings: Left frontal scalp hematoma has decreased. No intracranial hemorrhage is seen. No evidence of acute territorial infarct is seen. Note that CT is limited in sensitivity for acute ischemia. Ag e-related atrophic changes are noted. There is patchy periventricular and deep white matter hypoatte nuation which is nonspecific, but most commonly relates to chronic small vessel disease. No abnormal extra axial fluid collection is identified. No mass effect or midline shift is seen. No acute osseo us abnormalities are seen. Impression: 1. No acute intracranial process identified 2. Age-related atrophy, and evidence of chronic small vessel disease as described CT DOSING PQRS STATEMENT: One or more of the following individualized dose reduction techniques were utilized for this examinat ion: 1. Automated exposure control 2. Adjustment of the mA and/or kV according to patient size 3. Use of iterative reconstruction technique Electronically signed by: Jim Perez MD (03/19/2021 11:15 AM) [id number]
== END ==
LOC: CT 10:09
PROVIDERS: ATTEND Family Medicine
DX: S09.90XD Unspecified injury of head, subsequent encounter (principal); R42 Dizziness and giddiness; W19.XXXD Unspecified fall, subsequent encounter
CPT/HCPCS: 70450

== ENCOUNTER 2021-07-31 08:28 | Inpatient (IN) | payer MEDICARE ==
[~2021-07-31] VITALS: Ht 165.1 cm; Wt 83.1 kg
[2021-07-31 10:07] LABS: BASO % 0 % (0-3); EOS % 0 % (0-3); HEMATOCRIT 33.4 % (36.0-47.0); HEMOGLOBIN 11.5 g/dL (12.0-15.5); LYMPH # 0.5 x10^3/uL (1.0-4.8); LYMPH % 5 % (24-48); MEAN CORPUSCULAR HEMOGLOBIN 30 pg (25-35); MEAN CORPUSCULAR HGB CONC 34 g/dL (31-37); MEAN CORPUSCULAR VOLUME 86 fL (79-100); MONO # 1.5 x10^3/uL (0.0-1.1); MONO % 13 % (0-9); NEUT # 9.2 x10^3/uL (1.8-7.7); NEUT % 82 % (31-73); PLATELET COUNT 144 x10^3/uL (140-400); RED BLOOD COUNT 3.88 x10^6/uL (3.50-5.40); RED CELL DISTRIBUTION WIDTH 14.1 % (11.5-14.5); WHITE BLOOD COUNT 11.3 x10^3/uL (4.0-11.0)
[2021-07-31 10:36] LABS: CALCIUM 9.1 mg/dL (8.5-10.1); CREATININE 0.7 mg/dL (0.6-1.0); GFR 80.9; POTASSIUM 3.1 mmol/L (3.5-5.1)
[2021-07-31 10:37] LABS: ALBUMIN 3.5 g/dL (3.4-5.0); ALBUMIN/GLOBULIN RATIO 0.9 (1.0-1.7); TOTAL BILIRUBIN 1.1 mg/dL (0.2-1.0); TOTAL PROTEIN 7.3 g/dL (6.4-8.2)
[2021-07-31] MEDS ORDERED: ACETAMINOPHEN 500 MG TABLET PO ONE (10:45)
--- NOTE | 2021-07-31 10:51 | RAD ---
CT HEAD AND C-SPINE WO History: Dizziness, weakness Comparison: CT head 03/19/2021 Technique: Noncontrast CT of the head and cervical spine. Findings: CT HEAD: There is no evidence for intracranial mass or hemorrhage. There is no hydrocephalus or midline shift. No abnormal extra-axial fluid collections are present. No evidence of acute territorial infarction. Hypodensity the periventricular and deep white matter, l ikely represents chronic microvascular ischemic change Postsurgical changes of the lenses. Orbits are otherwise unremarkable. The visualized paranasal sinuses and mastoid air cells are clear. The skull and scalp are within normal limits. CT CERVICAL SPINE: There is no evidence for fracture in the cervical spine. Reversal the normal cervical lordosis with apex at C4. Multilevel moderate to severe disc space narrowing C3-C7 with circumferential disc osteophyte complex es causing multilevel neural foraminal narrowing and narrowing of the spinal canal which measures 6-7 mm at the C4-C5 C5-C6 and C6-C7 disc spaces. No destructive osseous lesions are seen. Limited evaluation of the soft tissues of the neck and of the upper chest is unremarkable. Impression: 1. No acute intracranial findings. Chronic microvascular ischemic changes. 2. No acute osseous abnormality in the cervical spine. 3. Multilevel degenerative changes of the cervical spine with significant stenoses of the bilateral neural foramina and mild narrowing of the spinal canal at multiple levels with possible for symptomat ic relationships. Recommend MRI cervical spine with there is concern for radiculopathy. ------- Exposure: One or more of the following individualized dose reduction techniques were utilized for thi s examination: 1. Automated exposure control 2. Adjustment of the mA and/or kV according to patient size 3. Use of iterative reconstruction technique. Electronically signed by: Castillo Garner MD (07/31/2021 10:48 AM) [id number]
--- NOTE | 2021-07-31 11:01 | RAD ---
XR CHEST 1V CLINICAL INDICATIONS: Reason: weakness / Spl. Instructions: / History: COMPARISON: November 04, 2014. Findings: Left axillary node dissection is evident. Chronic linear scarring of the left midlung zone is seen. No acute lung infiltrate or pleural effusion or pulmonary edema or lung mass or pneumothorax is seen. The heart size, pulmonary vasculature, mediastinum and both avinash are stable. IMPRESSION: No acute radiographic abnormality is seen. Electronically signed by: Elpidio Paulino MD (07/31/2021 10:59 AM) [id number]
[2021-07-31 11:15] LABS: BILIRUBIN,URINE NEGATIVE (NEG); CLARITY,URINE CLEAR; COLOR,URINE YELLOW; NITRITE,URINE NEGATIVE (NEG); PH,URINE 6.5 (<5.0-8.0); PROTEIN,URINE NEGATIVE (NEG-TRACE); UROBILINOGEN,URINE 0.2 mg/dL (0.2 mg/dL)
[2021-07-31 11:35] LABS: BACTERIA,URINE MANY /HPF (0-FEW); WBC,URINE >40 /HPF (0-4)
[2021-07-31] MEDS ORDERED: POTASSIUM CHLORIDE 20 MEQ TABLET.ER. PO ONE (11:45)
[2021-07-31] MEDS ORDERED: CIPROFLOXACIN 400MG PREMIX 200 ML IV ONE (11:45)
--- NOTE | 2021-07-31 12:10 | PHYS DOC ---
Past Medical History Past Medical History: Arthritis, Asthma, Cancer (breast), Depression, GERD, Hypertension, Hypothyroid, Other Additional Past Medical Histor: BREAST CA/RADIATION Past Surgical History: Hysterectomy, Knee Replacement, Other Additional Past Surgical Histo: L BREAST LYMPH NODE REMOVAL, CATARACT, BACK Smoking Status: Never Smoker Alcohol Use: None Drug Use: None General Adult EDM: Chief Complaint: DIZZY/LIGHT HEADED HPI: HPI: Patient is a 76-year-old female presents with report of generalized weakness, dizziness, headache, and nausea x3 days. Patient reports she does not feel like getting up. Patient denies any fever or chills. Denies trauma. Denies known exposure to COVID-19. Patient reports she has received both eCollect vac cinations. Patient does report some recent dysuria for which she has been drinking increased water. Review of Systems: Review of Systems: Constitutional: Denies fever or chills Eyes: Denies redness or eye pain HENT: Denies nasal congestion or sore throat Respiratory: Denies cough or shortness of breath Cardiovascular: Denies chest pain or palpitations GI: Denies abdominal pain or vomiting; reports nausea : Denies dysuria or hematuria Musculoskeletal: Denies back pain; reports neck pain Integument: Denies rash or skin lesions Neurologic: Reports headache, generalized weakness, and dizziness Complete systems were reviewed and found to be within normal limits, except as documented in this note. Heart Score: C/O Chest Pain: N/A Current Medications: Current Medications Medications (Trade) Dose Ordered Sig/Karan Start Time Stop Time Status Last Admin Dose Admin Acetaminophen (Tylenol) 500 mg 1X ONCE 07/31/21 10:45 07/31/21 10:47 DC 07/31/21 10:55 500 MG Ciprofloxacin/ Dextrose 200 ml @ 200 mls/hr 1X ONCE 07/31/21 11:45 07/31/21 12:44 Potassium Chloride (Klor-Con) 40 meq 1X ONCE 07/31/21 11:45 07/31/21 11:49 DC Allergies: Allergies: Allergies Coded Allergies Type Severity Reaction Last Updated Verified Penicillins Allergy Intermediate RASH ITCH 11/01/14 Yes Sulfa (Sulfonamide Antibiotics) Allergy Intermediate Itching, rash, swelling 11/01/14 Yes azithromycin Allergy Intermediate ITCHING 11/01/14 Yes cephalexin Allergy Intermediate rash 11/01/14 Yes clarithromycin Allergy Intermediate ITCHING 11/01/14 Yes codeine Allergy Intermediate itching 11/01/14 Yes doxycycline Allergy Intermediate swelling , itching 11/01/14 Yes naproxen sodium Allergy Mild CHEST DISCOMFORT, ITCH 04/23/21 Yes Estrogens Adverse Reaction Severe AVOIDS DUE TO ESTROGEN POSITIVE BREAST CANCER 11/01/14 Yes Physical Exam: PE: Constitutional: Well developed, well nourished, no acute distress, non-toxic appearance HENT: Normocephalic, atraumatic Eyes: PERRL, EOMI, conjunctiva normal, no discharge, no nystagmus Neck: Normal range of motion, paraspinal tenderness on palpation, supple, no meningeal signs Lungs & Thorax: No respiratory distress, equal chest rise and fall Abdomen: Soft, no tenderness Skin: Warm, dry, no erythema, no rash Extremities: No tenderness, ROM intact, no edema Neurologic: Alert and oriented X 3, normal motor function, normal sensory function, no focal deficits noted Psychologic: Affect normal, judgment normal Current Patient Data: Labs: Laboratory Tests Test 07/31/21 09:23 07/31/21 09:24 07/31/21 09:54 07/31/21 11:00 Glucose (Fingerstick) 138 mg/dL (70-99) H White Blood Count 11.3 x10^3/uL (4.0-11.0) H Red Blood Count 3.88 x10^6/uL (3.50-5.40) Hemoglobin 11.5 g/dL (12.0-15.5) L Hematocrit 33.4 % (36.0-47.0) L Mean Corpuscular Volume 86 fL (79-100) Mean Corpuscular Hemoglobin 30 pg (25-35) Mean Corpuscular Hemoglobin Concent 34 g/dL (31-37) Red Cell Distribution Width 14.1 % (11.5-14.5) Platelet Count 144 x10^3/uL (140-400) Neutrophils (%) (Auto) 82 % (31-73) H Lymphocytes (%) (Auto) 5 % (24-48) L Monocytes (%) (Auto) 13 % (0-9) H Eosinophils (%) (Auto) 0 % (0-3) Basophils (%) (Auto) 0 % (0-3) Neutrophils # (Auto) 9.2 x10^3/uL (1.8-7.7) H Lymphocytes # (Auto) 0.5 x10^3/uL (1.0-4.8) L Monocytes # (Auto) 1.5 x10^3/uL (0.0-1.1) H Eosinophils # (Auto) 0.0 x10^3/uL (0.0-0.7) Basophils # (Auto) 0.0 x10^3/uL (0.0-0.2) Sodium Level 126 mmol/L (136-145) L Potassium Level 3.1 mmol/L (3.5-5.1) L Chloride Level 89 mmol/L (98-107) L Carbon Dioxide Level 28 mmol/L (21-32) Anion Gap 9 (6-14) Blood Urea Nitrogen 8 mg/dL (7-20) Creatinine 0.7 mg/dL (0.6-1.0) Estimated GFR (Cockcroft-Gault) 80.9 BUN/Creatinine Ratio 11 (6-20) Glucose Level 122 mg/dL (70-99) H Calcium Level 9.1 mg/dL (8.5-10.1) Magnesium Level 2.0 mg/dL (1.8-2.4) Total Bilirubin 1.1 mg/dL (0.2-1.0) H Aspartate Amino Transferase (AST) 29 U/L (15-37) Alanine Aminotransferase (ALT) 36 U/L (14-59) Alkaline Phosphatase 157 U/L (46-116) H Creatine Kinase 289 U/L (26-192) H Creatine Kinase MB (Mass) 0.7 ng/mL (0.0-3.6) Creatine Kinase MB Relative Index 0.2 % (0-4) Troponin I Quantitative < 0.017 ng/mL (0.000-0.055) Total Protein 7.3 g/dL (6.4-8.2) Albumin 3.5 g/dL (3.4-5.0) Albumin/Globulin Ratio 0.9 (1.0-1.7) L SARS-CoV-2 Antigen (Rapid) Negative (NEGATIVE) Urine Collection Type Void Urine Color Yellow Urine Clarity Clear Urine pH 6.5 (<5.0-8.0) Urine Specific [place] <=1.005 (1.000-1.030) Urine Protein Negative mg/dL (NEG-TRACE) Urine Glucose (UA) Negative mg/dL (NEG) Urine Ketones (Stick) Negative mg/dL (NEG) Urine Blood Trace (NEG) Urine Nitrite Negative (NEG) Urine Bilirubin Negative (NEG) Urine Urobilinogen Dipstick 0.2 mg/dL (0.2 mg/dL) Urine Leukocyte Esterase Large (NEG) Urine RBC 1-2 /HPF (0-2) Urine WBC >40 /HPF (0-4) Urine Squamous Epithelial Cells Mod /LPF Urine Bacteria Many /HPF (0-FEW) Laboratory Tests 07/31/21 09:24 Laboratory Tests 07/31/21 09:24 Vital Signs: Vital Signs Date Time Temp Pulse Resp B/P (MAP) Pulse Ox O2 Delivery O2 Flow Rate FiO2 07/31/21 08:56 99.1 82 17 136/64 (88) 96 Room Air 99.1 EKG: EKG: @0908 NSR at 77bpm, NO ST elevation, QRS 100ms, QT/QTc 376/427ms Radiology/Procedures: Radiology/Procedures: PROCEDURE: CHEST AP ONLY XR CHEST 1V CLINICAL INDICATIONS: Reason: weakness / Spl. Instructions: / History: COMPARISON: November 04, 2014. Findings: Left axillary node dissection is evident. Chronic linear scarring of the left midlung zone is seen. No acute lung infiltrate or pleural effusion or pulmonary edema or lung mass or pneumothorax is seen. The heart size, pulmonary vasculature, mediastinum and both avinash are stable. IMPRESSION: No acute radiographic abnormality is seen. Electronically signed by: Elpidio Paulino MD (07/31/2021 10:59 AM) [id number] PROCEDURE: CT HEAD AND CERVICAL SPINE WO CT HEAD AND C-SPINE WO History: Dizziness, weakness Comparison: CT head 03/19/2021 Technique: Noncontrast CT of the head and cervical spine. Findings: CT HEAD: There is no evidence for intracranial mass or hemorrhage. There is no hydrocephalus or midline shift. No abnormal extra-axial fluid collections are present. No evidence of acute territorial infarction. Hypodensity the periventricular and deep white matter, likely represents chronic microvascular ischemic change Postsurgical changes of the lenses. Orbits are otherwise unremarkable. The visualized paranasal sinuses and mastoid air cells are clear. The skull and scalp are within normal limits. CT CERVICAL SPINE: There is no evidence for fracture in the cervical spine. Reversal the normal cervical lordosis with apex at C4. Multilevel moderate to severe disc space narrowing C3-C7 with circumferential disc osteophyte complexes causing multilevel neural foraminal narrowing and narrowing of the spinal canal which measures 6-7 mm at the C4-C5 C5-C6 and C6-C7 disc spaces. No destructive osseous lesions are seen. Limited evaluation of the soft tissues of the neck and of the upper chest is unremarkable. Impression: 1. No acute intracranial findings. Chronic microvascular ischemic changes. 2. No acute osseous abnormality in the cervical spine. 3. Multilevel degenerative changes of the cervical spine with significant stenoses of the bilateral neural foramina and mild narrowing of the spinal canal at multiple levels with possible for symptomatic relationships. Recommend MRI cervical spine with there is concern for radiculopathy. ------- Exposure: One or more of the following individualized dose reduction techniques were utilized for this examination: 1. Automated exposure control 2. Adjustment of the mA and/or kV according to patient size 3. Use of iterative reconstruction technique. Electronically signed by: Castillo Garner MD (07/31/2021 10:48 AM) [id number] Course & Med Decision Making: Course & Med Decision Making Pertinent Labs and Imaging studies reviewed. (See chart for details) Patient presents with generalized weakness, headache, nausea, and dizziness. Reports some dysuria. EKG stable. Labs obtained and posted to chart. Hyponatremia and hypokalemia noted. IV fluid hydration with normal saline provided along with potassium replacement. UA with signs of infection. Empiric antibiotic initiated. CT head/cervical spine without acute process. Chest x- ray stable. Patient requiring admission for further evaluation and treatment. Discussed with Dr. Casanova (hospitalist) who is in agreement with admission. Discussed findings and plan with patient and family, who acknowledge understanding and agreement. Guerrero Disclaimer: Guerrero Disclaimer: This electronic medical record was generated, in whole or in part, using a voice recognition dictation system. Departure Departure Impression: Primary Impression: Generalized weakness Additional Impressions: UTI (urinary tract infection) Qualified Codes: N30.00 - Acute cystitis without hematuria Hyponatremia Hypokalemia Disposition: ADMITTED INPATIENT Admitting Physician: Watson Casanova Condition: STABLE Referrals: WATSON CASANOVA MD (PCP) SILVANA ROMERO DO Jul 31, 2021 12:10
[2021-07-31] MEDS ORDERED: ONDANSETRON PF 4 MG/2 ML VIAL. IVP PRN (12:15)
[2021-07-31] MEDS ORDERED: FLU VACC QUAD 21-22 (6MOS+) PF 0.5 ML SYRINGE. VAX IM ONE (14:30)
[2021-07-31 15:00] VITALS: BP 116/58
[2021-07-31] MEDS ORDERED: guaiFENesin DM 600/30MG 1 TAB TAB.ER.12H PO PRN (16:30)
[2021-07-31] MEDS ORDERED: ALBUTEROL SULFATE 2.5 MG/3 ML NEBU. INH PRN (16:30)
[2021-07-31] MEDS ORDERED: CELE200C PO (17:15)
[2021-07-31] MEDS ORDERED: ACET500T68 PO (17:15)
[2021-07-31] MEDS: PANTOPRAZOLE 40 MG TABLET.DR. PO SCH (17:17)
--- NOTE | 2021-07-31 17:27 | EKG ---
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
[2021-07-31] MEDS ORDERED: CELE100C PO (17:49)
[2021-07-31 19:00] VITALS: BP 141/73
[2021-07-31] MEDS: ZOLPIDEM 5 MG TABLET. PO SCH (20:52)
[2021-07-31] MEDS: ACETAMINOPHEN 500 MG TABLET PO PRN (20:52)
[2021-07-31] MEDS: CIPROFLOXACIN 400MG PREMIX 200 ML IV SCH (20:53)
[2021-07-31 23:00] VITALS: BP 123/56
[2021-08-01 03:00] VITALS: BP 140/75
[2021-08-01 07:00] VITALS: BP 133/66
[2021-08-01] MEDS ORDERED: hydroCHLOROthiazide 25 MG TABLET PO SCH (09:00)
[2021-08-01] MEDS ORDERED: CELECOXIB 100 MG CAPSULE. PO SCH (09:00)
[2021-08-01] MEDS: CIPROFLOXACIN 400MG PREMIX 200 ML IV SCH ×2 (09:55→20:55)
[2021-08-01] MEDS: FLUTICASONE 50MCG/NASAL SPRAY 16GM BOTTLE. NS SCH (09:56)
[2021-08-01] MEDS: DESVENLAFAXINE 25 MG TAB.ER.24H PO SCH (09:56)
[2021-08-01] MEDS: LACTOBACILLUS RHAMNOSUS GG 1 CAPSULE. PO SCH (09:56)
[2021-08-01] MEDS: buPROPion SR 150 MG TABLET.SA PO SCH (09:57)
[2021-08-01] MEDS: MONTELUKAST SODIUM 10 MG TABLET. PO SCH (09:57)
[2021-08-01] MEDS: CHOLECALCIFEROL (VITAMIN D3) 5,000 UNIT CAPSULE PO SCH (09:57)
[2021-08-01] MEDS: CELECOXIB 100 MG CAPSULE. PO SCH (09:57)
[2021-08-01] MEDS: PANTOPRAZOLE 40 MG TABLET.DR. PO SCH ×2 (09:58→17:11)
[2021-08-01] MEDS: LEVOTHYROXINE 50 MCG TABLET PO SCH (09:58)
[2021-08-01] MEDS: LOSARTAN POTASSIUM 50 MG TABLET. PO SCH (09:58)
[2021-08-01] MEDS: ASCORBIC ACID 500 MG TABLET PO SCH (09:58)
[2021-08-01 11:00] VITALS: BP 120/60
--- NOTE | 2021-08-01 11:12 | HP ---
ADMIT DATE: 08/01/2021 ADMISSION HISTORY AND PHYSICAL LOCATION: She is in room 534. SUBJECTIVE: This 76-year-old female well known to me from followup in the office. She presented to the Emergency Room with a report of dizziness, weakness, headache, nausea for 3 days. She does not feel like even getting out of bed. She does admit that she had urinary burning, urgency and frequency for the last week or so, has taken some Azo and pushed fluids. She was found to have a urinary tract infection, felt to explain all of her symptomatology and she was admitted for IV antibiotics. PAST MEDICAL HISTORY: Remarkable for asthma, cancer of the breast, arthritis, depression, hypertension, hypothyroidism, GERD. PAST SURGICAL HISTORY: Remarkable for mastectomy, knee replacement, cataract surgery, back surgery, left breast lymph node sampling. MEDICATIONS: Brought with the patient, listed on computer have been addressed. ALLERGIES: SHE HAS MULTIPLE ALLERGIES INCLUDING ESTROGEN, PENICILLIN, SULFA, ZITHROMAX, CEPHALEXIN, CLARITHROMYCIN, CODEINE, DOXYCYCLINE, AND NAPROXEN. SOCIAL HISTORY: She is a lifetime nonsmoker, nondrinker, does not use drugs. , lives at home with her . FAMILY HISTORY: Noncontributory. REVIEW OF SYSTEMS: As mentioned above. PHYSICAL EXAMINATION: GENERAL: She is a well-developed, well-nourished female who appears ill, but nontoxic. VITAL SIGNS: Stable. T-max since admission is 100.1. HEAD, EYES, EARS, NOSE AND THROAT: Unremarkable. NECK: Supple without any adenopathy or thyromegaly. CHEST: Clear to auscultation and percussion. HEART: Regular rate and rhythm without S3, S4 or murmur. ABDOMEN: Soft, nontender, without hepatosplenomegaly or mass. EXTREMITIES: Without cyanosis, clubbing, edema. NEUROLOGIC: She is intact. I can appreciate no flank tenderness on exam. LABORATORY DATA: Initial white count is 11,300 with a left shift. She has had troponins done and are negative. Initially, she is hyponatremic with a sodium of 126 and hypokalemic with a potassium of 3.1. ASSESSMENT: Urinary tract infection with leukocytosis, generalized weakness, hyponatremia, hypokalemia. PLAN: IV antibiotics. Await urine cultures. Follow electrolytes. Mobilize. PAT/FRANCISCO/NURYS DR: PAT/yari TID: [id number]
[2021-08-01 15:00] VITALS: BP 108/59
[2021-08-01] MEDS ORDERED: NON FORMULARY ITEM INH PRN (19:15)
[2021-08-01] MEDS ORDERED: ALBUTEROL SULFATE 2.5 MG/3 ML NEBU. INH PRN (19:30)
[2021-08-01] MEDS ORDERED: ALBUTEROL INHALER INH PRN (19:45)
[2021-08-01 19:55] VITALS: BP 127/66
[2021-08-01] MEDS ORDERED: BUDESONIDE 0.5 MG/2 ML NEBU. NEB SCH (20:00)
[2021-08-01] MEDS ORDERED: ALBUTEROL SULFATE 2.5 MG/3 ML NEBU. NEB SCH (20:00)
[2021-08-01] MEDS: ZOLPIDEM 5 MG TABLET. PO SCH (20:55)
[2021-08-01] MEDS: ACETAMINOPHEN 500 MG TABLET PO PRN (21:00)
[2021-08-01 23:32] VITALS: BP 137/51
[2021-08-02 07:00] VITALS: BP 127/64
[2021-08-02 08:11] LABS: CALCIUM 8.9 mg/dL (8.5-10.1); CREATININE 0.9 mg/dL (0.6-1.0); GFR 60.6; POTASSIUM 3.3 mmol/L (3.5-5.1)
[2021-08-02] MEDS ORDERED: NON FORMULARY ITEM INH SCH (09:00)
[2021-08-02] MEDS: LACTOBACILLUS RHAMNOSUS GG 1 CAPSULE. PO SCH (09:06)
[2021-08-02] MEDS: buPROPion SR 150 MG TABLET.SA PO SCH (09:06)
[2021-08-02] MEDS: ASCORBIC ACID 500 MG TABLET PO SCH (09:06)
[2021-08-02] MEDS: CHOLECALCIFEROL (VITAMIN D3) 5,000 UNIT CAPSULE PO SCH (09:06)
[2021-08-02] MEDS: PANTOPRAZOLE 40 MG TABLET.DR. PO SCH ×2 (09:06→17:22)
[2021-08-02] MEDS: LOSARTAN POTASSIUM 50 MG TABLET. PO SCH (09:07)
[2021-08-02] MEDS: CELECOXIB 100 MG CAPSULE. PO SCH (09:07)
[2021-08-02] MEDS: DESVENLAFAXINE 25 MG TAB.ER.24H PO SCH (09:07)
[2021-08-02] MEDS: MONTELUKAST SODIUM 10 MG TABLET. PO SCH (09:07)
[2021-08-02] MEDS: CIPROFLOXACIN 400MG PREMIX 200 ML IV SCH ×2 (09:07→21:34)
[2021-08-02] MEDS: LEVOTHYROXINE 50 MCG TABLET PO SCH (09:07)
[2021-08-02] MEDS: ADVAIR 250/50 INH SCH (09:08)
[2021-08-02] MEDS: FLUTICASONE 50MCG/NASAL SPRAY 16GM BOTTLE. NS SCH (09:08)
[2021-08-02] MEDS: ACETAMINOPHEN 500 MG TABLET PO PRN ×2 (09:13→21:39)
[2021-08-02 11:00] VITALS: BP 144/67
--- NOTE | 2021-08-02 11:11 | NUR ---
Pt stated to nursing staff that "my doctor told me I didn't have to wear the heart monitor anymore." This RN explained to patient that she needs to keep it on until I receive an order to remove it. Pt refused to put it back on at this time. Will continue to monitor.
--- NOTE | 2021-08-02 11:46 | PN ---
DATE: 08/02/2021 LOCATION: She is in room 534. SUBJECTIVE: This 76-year-old female remains hospitalized with urinary tract infection, generalized weakness, inability to do self care. She states she feels somewhat better and has been up moving around the room at least some in the last 24 hours. OBJECTIVE: VITAL SIGNS: Stable. She is afebrile. GENERAL: She is awake and alert. CHEST: Clear. HEART: Regular. ABDOMEN: Benign. LABORATORY DATA: Urine culture was not available earlier when I saw her, but is now showing greater than 100,000 Gram-negative rods with E. coli sensitive to the Cipro that we have her on and I believe she can be transitioned tomorrow to p.o., which she is concerned about upsetting her stomach, but I am told her she is definitely not allergic to it. We will also recheck labs in the morning to make sure her leukocytosis is resolved. Her sodium has increased this morning to 132 and potassium 3.3 with holding of the hydrochlorothiazide and I believe this is the culprit. ASSESSMENT: Urinary tract infection with leukocytosis and generalized weakness. Hyponatremia, improving. Hypokalemia, improving. Escherichia coli urinary tract infection. PLAN: Recheck labs in a.m. Continue to hold hydrochlorothiazide, probable change to p.o. Cipro tomorrow with discharge later in the day if she tolerates it. PAT/VINITA DR: Leo TID: [id number]
[2021-08-02 15:36] VITALS: BP 144/67
[2021-08-02 19:00] VITALS: BP 135/72
[2021-08-02] MEDS: ZOLPIDEM 5 MG TABLET. PO SCH (21:34)
[2021-08-02 23:28] VITALS: BP 157/87
[2021-08-03 03:18] VITALS: BP 143/75
[2021-08-03] MEDS: LEVOTHYROXINE 50 MCG TABLET PO SCH (05:52)
[2021-08-03 06:35] LABS: CALCIUM 9.2 mg/dL (8.5-10.1); CREATININE 0.8 mg/dL (0.6-1.0); GFR 69.4; POTASSIUM 3.3 mmol/L (3.5-5.1)
[2021-08-03 07:00] VITALS: BP 156/75
[2021-08-03] MEDS ORDERED: CIPR250T30 PO (08:08)
[2021-08-03] MEDS ORDERED: VALS160T3 PO (08:08)
[2021-08-03] MEDS ORDERED: POTASSIUM CHLORIDE 20 MEQ TABLET.ER. PO ONE (08:15)
[2021-08-03] MEDS ORDERED: CIPROFLOXACIN HCL 250 MG TABLET. PO SCH (09:00)
[2021-08-03] MEDS: DESVENLAFAXINE 25 MG TAB.ER.24H PO SCH (09:22)
[2021-08-03] MEDS: MONTELUKAST SODIUM 10 MG TABLET. PO SCH (09:22)
[2021-08-03] MEDS: CELECOXIB 100 MG CAPSULE. PO SCH (09:22)
[2021-08-03] MEDS: LACTOBACILLUS RHAMNOSUS GG 1 CAPSULE. PO SCH (09:22)
[2021-08-03] MEDS: LOSARTAN POTASSIUM 50 MG TABLET. PO SCH (09:23)
[2021-08-03] MEDS: CHOLECALCIFEROL (VITAMIN D3) 5,000 UNIT CAPSULE PO SCH (09:24)
[2021-08-03] MEDS: buPROPion SR 150 MG TABLET.SA PO SCH (09:24)
[2021-08-03] MEDS: ASCORBIC ACID 500 MG TABLET PO SCH (09:24)
[2021-08-03] MEDS: PANTOPRAZOLE 40 MG TABLET.DR. PO SCH (09:25)
[2021-08-03] MEDS: FLUTICASONE 50MCG/NASAL SPRAY 16GM BOTTLE. NS SCH (09:26)
[2021-08-03] MEDS: ADVAIR 250/50 INH SCH (09:26)
[2021-08-03] MEDS: ACETAMINOPHEN 500 MG TABLET PO PRN (09:33)
[2021-08-03 11:00] VITALS: BP 130/79
--- NOTE | 2021-08-03 14:26 | NUR ---
SW following. Chart reviewed, pt from home with spouse, discharge order for home with self care. No SW needs identified at this time.
--- NOTE | 2021-08-03 14:40 | NUR ---
DISCHARGE INSTRUCTIONS GIVEN TO PATIENT AND HER SPOUSE AT THE BEDSIDE, QUESTIONS AND CONCERNS ANSWERED, PATIENT VERBALIZED UNDERSTANDING OF DISCHARGE INFORMATION INCLUDING TAKING ALL MEDICATIONS INSTRUCTED AND FOLLOWING UP WITH HER PRIMARY PROVIDER IN 1-2 WEEKS.
--- NOTE | 2021-08-03 15:08 | NUR ---
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
--- NOTE | 2021-08-03 19:27 | DS ---
DATE OF DISCHARGE: 08/03/2021 PRIMARY DIAGNOSES: Urinary tract infection with profound weakness, leukocytosis, hyponatremia and hypokalemia. ADDITIONAL DIAGNOSES: Asthma, hypertension, hypothyroidism, status post carcinoma of the breast. CHIEF COMPLAINT AND HISTORY OF PRESENT ILLNESS: This 76-year-old female well known to me from followup in the office. She presented to the Emergency Room with a report of dizziness, weakness, headache, nausea for 3 days. She is not feeling like getting out of bed. She had had some urinary burning, urgency and frequency over the last week or so and drank extra fluids and taken Azo. She was found to have urinary tract infection due to her symptomatology with profound weakness along with hyponatremia and hypokalemia, admitted. SUMMARY OF STAY: The patient was admitted, started on IV Cipro because of a long list of allergies, it has turned out this was a good antibiotic with E. coli sensitive to the same. She did improve on a daily basis, was able to be up and around the room and once sensitivities were available, it was felt she could be dismissed to continue p.o. She was ambulatory enough to go home and do the same. DISPOSITION: The patient is discharged to home. DIET: She was discharged on the regular diet. ACTIVITY: As tolerated. FOLLOWUP: Office in 1 week. DISCHARGE MEDICATIONS: Will be her normal home meds with the exception of stopping the hydrochlorothiazide, which was the likely culprit of her hypokalemia as well as her hyponatremia. As these improve, then she will complete another week of Cipro. ROMANA DR: Leo TID: [id number]
== END 2021-08-03 15:08 | disposition home or self-care (01) | DRG 690 ==
LOC: ER 08:28 → 5 NORTH 11:58
PROVIDERS: ADMIT Family Medicine; ATTEND Family Medicine
DX: N30.00 Acute cystitis without hematuria (principal); E87.1 Hypo-osmolality and hyponatremia; B96.20 Unspecified Escherichia coli [E. coli] as the cause of diseases classified elsewhere; E03.9 Hypothyroidism, unspecified; E87.6 Hypokalemia; I10 Essential (primary) hypertension; J45.909 Unspecified asthma, uncomplicated; Z85.3 Personal history of malignant neoplasm of breast; Z90.710 Acquired absence of both cervix and uterus; F32.A Depression, unspecified; K21.9 Gastro-esophageal reflux disease without esophagitis; M19.90 Unspecified osteoarthritis, unspecified site; Z20.822 Contact with and (suspected) exposure to COVID-19; Z88.0 Allergy status to penicillin; Z88.2 Allergy status to sulfonamides; Z92.3 Personal history of irradiation
CPT/HCPCS: 36415; 70450; 71045; 72125; 80048; 80053; 81001; 82553; 82962; 83735; 84484; 85025; 87077; 87086; 87186; 87426; 90471; 90686; 93005; 96365; J0744; U0003; U0005; 99285-25; G0378

== ENCOUNTER → 2021-12-01 | Outpatient (CLI) | payer MEDICARE, OTHER ==
[~2021-12-01] MED LIST changes: +ACET500T68 PO; +CELE100C PO; +CELE200C PO; +CIPR250T30 PO; +VALS160T3 PO
--- NOTE | 2021-12-01 19:42 | RAD ---
EXAM: MRI left shoulder DATE: 12/01/2021 11:03 AM COMPARISON: None INDICATION: Reason: LEFT SHOULDER PAIN, PROBABLE CUFF TEAR / Spl. Instructions: / History: TECHNIQUE: Multiplanar, multisequence MRI of the left shoulder was performed without contrast. FINDINGS: Mild AC joint DJD. Bilateral downsloping of the distal acromion. No os acromiale. Trace subacromial subdeltoid bursal edema, bursitis. Small left shoulder joint effusion. Full-thickness tear of the anteriormost fibers of the supraspinatus tendon measuring 5 mm in AP dimen eduin. This extends posteriorly as a partial-thickness articular sided tear of the supraspinatus measu ring 2 cm in AP dimension, approximately 50-70 percent tendon thickness. Mild increased signal within the supraspinatus and infraspinatus tendon. Rotator cuff muscle signal and bulk is normal. No fatty atrophy. No discrete labral tear is seen. Diminutive appearance of the long head biceps tendon, severe tendino sis or tear. Small osteophyte anterior humeral head. No acute fracture or osteonecrosis. Articular cartilage is gr ossly preserved. IMPRESSION: 1. Full-thickness tear of the anteriormost fibers of the supraspinatus which extends posteriorly as a partial-thickness articular sided tear. 2. Mild supraspinatus and infraspinatus tendinosis. 3. Diminutive appearance of the long head biceps tendon possibly severe tendinosis or tear. 4. A prominent osteophyte is seen at the anterior aspect of the humeral head. Given the orientation, this anterior osteophyte may abut the anterior labrum with internal rotation. Electronically signed by: Justin Marina MD (12/01/2021 7:40 PM) JENNIFER
== END ==
LOC: MRI 11:15
PROVIDERS: ATTEND Orthopaedic Surgery
DX: M75.122 Complete rotator cuff tear or rupture of left shoulder, not specified as traumatic (principal); M19.012 Primary osteoarthritis, left shoulder; M25.412 Effusion, left shoulder; M25.712 Osteophyte, left shoulder
CPT/HCPCS: 73221